=== PATIENT | male | born 1985 | race Two or more races ===

== ENCOUNTER 2024-04-11 21:55 | Inpatient (IN) | payer MEDICARE, MEDICAID ==
[~2024-04-11] VITALS: Ht 185.4 cm; Wt 144.3 kg
[2024-04-11 22:15] VITALS: PULSE 61; RESP 14; O2SAT 94
[2024-04-11 22:23] LABS: Basophils # (auto) 0.1 10 ^3/uL (0-0.2); Basophils % (auto) 0.8 % (0.0-2.0); Eosinophils # (auto) 0 10 ^3/uL (0-0.8); Eosinophils % (auto) 0.4 % (0.0-7.0); Hematocrit 47.7 % (41.0-53.0); Hemoglobin 16.9 g/dL (13.5-17.5); Lymphocytes # (auto) 2.5 10 ^3/uL (0.4-5.4); Lymphocytes % (auto) 24.6 % (10.0-50.0); Mean Corpuscular Hemoglobin 33.5 pg (28.0-32.0); Mean Corpuscular Hgb Conc. 35.4 g/dL (32.0-36.0); Mean Corpuscular Volume 94.7 fL (80.0-100.0); Monocytes # (auto) 1.3 10 ^3/uL (0-1.3); Neutrophils # (auto) 6.2 10 ^3/uL (1.6-8.6); Neutrophils % (auto) 61.2 % (37.0-80.0); Platelet Count (auto) 205 10^3/uL (140-450); Red Blood Cells 5.04 10^6/uL (4.5-5.90); Red Cell Distribution Width 13.5 % (11.8-14.3); White Blood Cell 10.2 10^3/uL (4.4-10.8)
[2024-04-11 22:41] LABS: Alanine Aminotransferase 218 U/L (7-40); Albumin 4.2 g/dL (3.2-4.8); Alkaline Phosphatase 164 U/L (46-116); Anion Gap 7 (5-15); Aspartate Aminotransferase 122 U/L (13-40); BUN/Creatinine Ratio 8.4 (10.0-20.0); Blood Urea Nitrogen 7 mg/dL (9-23); Carbon Dioxide 27 mmol/L (20-31); Chloride 108 mmol/L (98-107); Glucose 101 mg/dL (74-106); INR 1.12 (0.9-1.15); Magnesium 1.6 mg/dL (1.6-2.6); Partial Thromboplastin Time 27.3 SEC (24.5-34.5); Potassium 3.8 mmol/L (3.5-5.1); Prothrombin Time 11.8 sec (9.3-11.8); Sodium 142 mmol/L (136-145)
[2024-04-11 22:42] LABS: Total Protein 7.1 g/dL (5.7-8.2)
[2024-04-11] MEDS ORDERED: NITROGLYCERIN 0.4 MG SL TAB SL PRN (23:00)
[2024-04-11] MEDS: MORPHINE SULFATE INJ 2 MG/ml SYRG IV PRN (23:27)
[2024-04-11] MEDS: PANTOPRAZOLE 40 MG/10 ML VIAL INJ IV ONE (23:31)
[2024-04-11] MEDS: ONDANSETRON HCL 4 MG/2 ML VIAL IV ONE (23:39)
[2024-04-12] VITALS (9 sets, daily range): BP systolic 103–128; BP diastolic 65–77; PULSE 48–95; RESP 17–20; TEMP 97.5–98.6; O2SAT 90–97
[2024-04-12] MEDS ORDERED: METO-289 PO (01:28)
[2024-04-12] MEDS ORDERED: GABA-1250 PO (01:28)
[2024-04-12] MEDS ORDERED: TACR1CAP4 PO (01:28)
[2024-04-12] MEDS ORDERED: OMEP-411 (01:28)
[2024-04-12] MEDS ORDERED: PRED10TA PO (01:29)
[2024-04-12] MEDS ORDERED: MESA1.2T12 PO (01:29)
[2024-04-12] MEDS: MORPHINE SULFATE INJ 2 MG/ml SYRG IV PRN ×2 (02:11→09:04)
[2024-04-12 02:27] LABS: COVID19 ANTIGEN SOFIA FIA NEGATIVE (NEGATIVE)
[2024-04-12 05:29] LABS: Rapid Influenza A Negative (Negative); Rapid Influenza B Negative (Negative)
[2024-04-12 05:59] LABS: INR 1.13 (0.9-1.15); Partial Thromboplastin Time 27.8 SEC (24.5-34.5); Prothrombin Time 11.9 sec (9.3-11.8)
[2024-04-12 08:32] LABS: Mean Corpuscular Volume 96.1 fL (80.0-100.0); Nucleated Red Blood Cells % 0.1 %; Red Blood Cells 4.89 10^6/uL (4.5-5.90)
[2024-04-12 08:34] LABS: Basophils # (auto) 0.1 10 ^3/uL (0-0.2); Basophils % (auto) 0.6 % (0.0-2.0); Eosinophils # (auto) 0.2 10 ^3/uL (0-0.8); Eosinophils % (auto) 1.7 % (0.0-7.0); Hemoglobin 16.4 g/dL (13.5-17.5); Lymphocytes % (auto) 21.5 % (10.0-50.0); Mean Corpuscular Hemoglobin 33.4 pg (28.0-32.0); Mean Corpuscular Hgb Conc. 34.8 g/dL (32.0-36.0); Monocytes # (auto) 1.2 10 ^3/uL (0-1.3); Monocytes % (auto) 13.6 % (0.0-12.0); Neutrophils # (auto) 5.7 10 ^3/uL (1.6-8.6); Neutrophils % (auto) 62.6 % (37.0-80.0); Platelet Count (auto) 204 10^3/uL (140-450); Red Cell Distribution Width 13.8 % (11.8-14.3); White Blood Cell 9.1 10^3/uL (4.4-10.8)
[2024-04-12 08:46] LABS: Alanine Aminotransferase 212 U/L (7-40); Albumin 3.8 g/dL (3.2-4.8); Alkaline Phosphatase 157 U/L (46-116); Anion Gap 9 (5-15); Aspartate Aminotransferase 114 U/L (13-40); BUN/Creatinine Ratio 12.5 (10.0-20.0); Blood Urea Nitrogen 9 mg/dL (9-23); Calcium 9.4 mg/dL (8.7-10.4); Carbon Dioxide 26 mmol/L (20-31); Chloride 109 mmol/L (98-107); Glucose 88 mg/dL (74-106); Potassium 3.4 mmol/L (3.5-5.1); Sodium 144 mmol/L (136-145)
[2024-04-12 08:47] LABS: Total Protein 6.5 g/dL (5.7-8.2)
[2024-04-12] MEDS: SODIUM CHLORIDE 0.9% 1,000 ML IV SCH (09:12)
[2024-04-12] MEDS: PANTOPRAZOLE 40 MG/10 ML VIAL INJ IV SCH (09:22)
[2024-04-12] MEDS ORDERED: ENOXAPARIN SOD 60 MG/0.6 ML SYRINGE SC SCH ×2 (09:45→10:00)
[2024-04-12] MEDS: POTASSIUM CHL 20MEQ/100ML 100 ML IV SCH (10:00)
[2024-04-12] MEDS ORDERED: PANTOPRAZOLE 40 MG/10 ML VIAL INJ IV SCH (10:00)
[2024-04-12] MEDS: ENOXAPARIN SOD 40 MG/0.4 ML SYRINGE SC SCH (10:05)
[2024-04-12] MEDS: PIPERACILLIN-TAZOB 3.375GM 100 ML IV SCH ×2 (14:49→20:32)
[2024-04-12 15:44] LABS: Urine Bacteria None Seen /hpf (None Seen)
[2024-04-12 15:57] LABS: Urine Amorphous Crystal FEW /hpf (None Seen); Urine Blood Negative /uL (Negative); Urine Clarity Clear (Clear); Urine Color Dark-Yellow (Yellow); Urine Mucus FEW (None Seen); Urine Protein, UAD TRACE (Negative); Urine Specific Gravity 1.027 (1.001-1.035); Urine Urobilinogen 2 mg/dL (Negative); Urine WBC 2 /hpf (0 - 3)
[2024-04-12 16:00] LABS: Amphetamine Screen, Urine Neg (NEGATIVE); Barbiturate Scree,Urine Neg (NEGATIVE); Benzodiazephine Screen, Urine Neg (NEGATIVE); Cocaine Screen, Urine Neg (NEGATIVE)
[2024-04-12 16:01] LABS: Cannabinoid Screen, Urine Pos (NEGATIVE); Opiate Scree,Urine Pos (NEGATIVE); Phencyclidine Screen, Urine Neg (NEGATIVE)
[2024-04-12] MEDS: DICYCLOMINE HCL (10MG/ML) 2 ML AMPULE IM ONE (18:57)
[2024-04-12] MEDS: POTASSIUM CHLORIDE 40 MEQ, LIDOCAINE 1% (LOCAL ANESTH.) 4 ML in SODIUM CHL 0.9% 250 ML IV ONE (22:26)
[2024-04-13] VITALS (7 sets, daily range): BP systolic 107–130; BP diastolic 43–73; PULSE 60–71; RESP 17–20; TEMP 97.7–99.5; O2SAT 92–100
[2024-04-13] MEDS: ONDANSETRON ODT 4 MG TAB PO PRN (04:05)
[2024-04-13 07:01] LABS: Alanine Aminotransferase 212 U/L (7-40); Albumin 3.7 g/dL (3.2-4.8); Alkaline Phosphatase 162 U/L (46-116); Anion Gap 9 (5-15); Aspartate Aminotransferase 110 U/L (13-40); Bilirubin, Direct 7.6 mg/dL (<0.3); Bilirubin, Total 10.7 mg/dL (0.2-1.0); Blood Urea Nitrogen 10 mg/dL (9-23); Carbon Dioxide 24 mmol/L (20-31); Chloride 107 mmol/L (98-107); Glucose 78 mg/dL (74-106); Potassium 3.9 mmol/L (3.5-5.1); Sodium 140 mmol/L (136-145); Total Protein 6.3 g/dL (5.7-8.2)
[2024-04-13 07:02] LABS: BUN/Creatinine Ratio 13.7 (10.0-20.0); Basophils # (auto) 0 10 ^3/uL (0-0.2); Basophils % (auto) 0.4 % (0.0-2.0); Eosinophils # (auto) 0.2 10 ^3/uL (0-0.8); Eosinophils % (auto) 2.3 % (0.0-7.0); Hematocrit 46.8 % (41.0-53.0); Hemoglobin 16.6 g/dL (13.5-17.5); Lymphocytes # (auto) 1.2 10 ^3/uL (0.4-5.4); Lymphocytes % (auto) 15.7 % (10.0-50.0); Mean Corpuscular Hemoglobin 33.8 pg (28.0-32.0); Mean Corpuscular Hgb Conc. 35.4 g/dL (32.0-36.0); Mean Corpuscular Volume 95.5 fL (80.0-100.0); Monocytes % (auto) 13.5 % (0.0-12.0); Neutrophils # (auto) 5.2 10 ^3/uL (1.6-8.6); Neutrophils % (auto) 68.1 % (37.0-80.0); Nucleated Red Blood Cells % 0.1 %; Platelet Count (auto) 186 10^3/uL (140-450); Red Cell Distribution Width 13.4 % (11.8-14.3); White Blood Cell 7.6 10^3/uL (4.4-10.8)
[2024-04-13 08:44] LABS: LDL Cholesterol 94 mg/dL (< 100)
[2024-04-13 08:45] LABS: Cholesterol 170 mg/dL (< 200); HDL Cholesterol 34 mg/dL (40-59)
[2024-04-13 08:53] LABS: Triglycerides 154 mg/dL (< 150)
[2024-04-13] MEDS ORDERED: URSO300C2 PO (11:56)
[2024-04-13 15:07] LABS: Anti-Nuclear Antibody Direct Negative (Negative)
[2024-04-14 01:00] VITALS: BP 109/68; PULSE 58; RESP 18; TEMP 97.7; O2SAT 98
[2024-04-14 04:16] VITALS: BP 109/68; PULSE 58; RESP 18; TEMP 97.7; O2SAT 98
[2024-04-14 05:00] VITALS: BP 133/79; PULSE 55; RESP 18; TEMP 97.7; O2SAT 97
[2024-04-14 08:43] LABS: Hepatitis B Surface Antigen Negative (Negative)
[2024-04-14 09:03] LABS: Hepatitis A Ab IgM Negative
[2024-04-14 09:04] LABS: Hepatitis B Core IgM Negative; Hepatitis C Antibody Negative (Negative)
[2024-04-14] MEDS ORDERED: predniSONE 20 MG TAB PO SCH (10:00)
[2024-04-14 16:06] LABS: Actin (Smooth Muscle) Antibody 20 Units (0-19)
== END 2024-04-14 06:45 | disposition short-term general hospital (02) | DRG 871 ==
LOC: ER 21:55 → TELE 22:58 → TELE-WESTW 23:59
PROVIDERS: ADMIT Internal Medicine; ATTEND Internal Medicine
DX: A41.9 Sepsis, unspecified organism (principal); K72.00 Acute and subacute hepatic failure without coma; K80.00 Calculus of gallbladder with acute cholecystitis without obstruction; I24.9 Acute ischemic heart disease, unspecified; K51.90 Ulcerative colitis, unspecified, without complications; Z68.41 Body mass index [BMI] 40.0-44.9, adult; K83.01 Primary sclerosing cholangitis; K75.4 Autoimmune hepatitis; E66.01 Morbid (severe) obesity due to excess calories; I48.91 Unspecified atrial fibrillation; Z20.822 Contact with and (suspected) exposure to COVID-19; E87.6 Hypokalemia; K82.8 Other specified diseases of gallbladder; Z85.528 Personal history of other malignant neoplasm of kidney; Z90.49 Acquired absence of other specified parts of digestive tract
CPT/HCPCS: 36415; 71045; 74181; 76705; 78226; 80053; 80061; 80074; 80307; 80320; 81001; 82140; 82248; 82977; 83036; 83605; 83690; 83735; 83880; 84439; 84443; 84484; 85025; 85610; 85730; 86038; 86850; 86900; 86901; 87426; 87804; 93005; 93306; 96365; 96375; 99291; G0378; J2003; J2405; J2470; J2543; J3480; Q0162